=== PATIENT | female | born 1930 | race Caucasian/White ===

== ENCOUNTER 2020-06-29 15:08 | Inpatient (IN) | payer OTHER, BC ==
[2020-06-29] MEDS ORDERED: SODIUM CHLORIDE 1,000 ML IV SCH (15:15)
[2020-06-29 16:21] LABS: BASO % 0.3 % (0-2.0); HEMATOCRIT 39.4 % (32.4-45.2); HEMOGLOBIN 13.5 GM/dL (10.7-15.3); LYMPH % 10.7 % (8-40); MCH 30.5 pg (25.7-33.7); MCHC 34.2 g/dl (32.0-36.0); MEAN CELL VOLUME 89.3 fl (80-96); MEAN PLT VOLUME 7.4 fl (7.5-11.1); MONO % 5.3 % (3.8-10.2); NEUT % 82.7 % (42.8-82.8); PLATELET COUNT 191 K/MM3 (134-434); RBC 4.41 M/mm3 (3.60-5.2); RDW 14.6 % (11.6-15.6); WHITE BLOOD COUNT 7.7 K/mm3 (4.0-10.0)
[2020-06-29 16:24] LABS: INR 0.97 (0.83-1.09)
[2020-06-29 16:27] LABS: ACTIVATED PTT 28.5 SECONDS (25.2-36.5)
[2020-06-29 16:38] LABS: CHLORIDE 102 mmol/L (98-107); SODIUM 138 mmol/L (136-145)
[2020-06-29 16:40] LABS: CALCIUM 9.5 mg/dL (8.5-10.1)
[2020-06-29 16:41] LABS: ALBUMIN 3.8 g/dl (3.4-5.0); ANION GAP 6 MMOL/L (8-16); BLOOD UREA NITROGEN 16.3 mg/dL (7-18); CO2 29 mmol/L (21-32); GLUCOSE,RANDOM 171 mg/dL (74-106); TRIGLYCERIDES 255 mg/dL (0-150)
[2020-06-29 16:42] LABS: CHOLESTEROL 259 mg/dL (50-200); LDL CHOLESTEROL (ONLY SJRH) 153 mg/dL (5-100)
[2020-06-29 16:44] LABS: CREATININE 0.9 mg/dL (0.55-1.3); HDL CHOLESTEROL 64 mg/dL (40-60); SGOT/AST 21 U/L (15-37); SGPT/ALT 18 U/L (13-61)
[2020-06-29 16:45] LABS: BILIRUBIN,TOTAL 0.8 mg/dL (0.2-1)
[2020-06-29 16:47] LABS: ALK PHOS 100 U/L (45-117)
[2020-06-29 16:55] LABS: URINE APPEARANCE CLEAR; URINE BILIRUBIN NEGATIVE (NEGATIVE); URINE COLOR YELLOW; URINE GLUCOSE (UA) NEGATIVE (NEGATIVE); URINE KETONE NEGATIVE (NEGATIVE); URINE LEUK ESTERASE NEGATIVE (NEGATIVE); URINE NITRITE NEGATIVE (NEGATIVE); URINE PROTEIN NEGATIVE (NEGATIVE)
[2020-06-29] MEDS ORDERED: ASPIRIN 300 MG SUPP.RECT PR ONE (17:02)
[2020-06-29] MEDS ORDERED: ASPIRIN SUPPOSITORY 600 MG SUPP.RECT PR ONE (17:03)
[2020-06-29] MEDS ORDERED: ASPIRIN 300 MG SUPP.RECT RC ONE (17:04)
[2020-06-29] MEDS ORDERED: ROSUVASTATIN CA 40 MG TABLET PO ONE (17:52)
[2020-06-29] MEDS: SODIUM CHLORIDE 1,000 ML IV SCH (18:01)
[2020-06-30 07:51] LABS: BASO % 0.2 % (0-2.0); HEMATOCRIT 41.2 % (32.4-45.2); HEMOGLOBIN 14.1 GM/dL (10.7-15.3); MCH 30.4 pg (25.7-33.7); MCHC 34.3 g/dl (32.0-36.0); MEAN CELL VOLUME 88.8 fl (80-96); MONO % 4.1 % (3.8-10.2); NEUT % 90.7 % (42.8-82.8); PLATELET COUNT 177 K/MM3 (134-434); RBC 4.64 M/mm3 (3.60-5.2); RDW 14.6 % (11.6-15.6); WHITE BLOOD COUNT 9.9 K/mm3 (4.0-10.0)
[2020-06-30 08:18] LABS: ALBUMIN 3.5 g/dl (3.4-5.0); BLOOD UREA NITROGEN 12.8 mg/dL (7-18); CALCIUM 9.6 mg/dL (8.5-10.1)
[2020-06-30 08:23] LABS: BILIRUBIN,TOTAL 0.7 mg/dL (0.2-1); TOT PROT 7.6 g/dl (6.4-8.2)
[2020-06-30] MEDS ORDERED: RIVAROXABAN PO SCH (10:00)
[2020-06-30] MEDS: ASPIRIN 325 MG ENTERIC COATED TABLET (FP) PO SCH (12:04)
[2020-06-30] MEDS: amLODIPine BESYLATE 10 MG TABLET (FP) PO SCH (12:04)
[2020-06-30] MEDS: SODIUM CHLORIDE 1,000 ML IV SCH (18:28)
[2020-07-01 01:30] VITALS: BMI 25.3
[2020-07-01] MEDS: ASPIRIN 325 MG ENTERIC COATED TABLET (FP) PO SCH ×2 (11:06→11:20)
[2020-07-01] MEDS: amLODIPine BESYLATE 10 MG TABLET (FP) PO SCH ×2 (11:06→11:20)
[2020-07-01] MEDS ORDERED: PT OWN MED DRAWER 7, Y5N ONE (11:10)
[2020-07-01] MEDS: SODIUM CHLORIDE 1,000 ML IV SCH (19:30)
[2020-07-02] MEDS: amLODIPine BESYLATE 10 MG TABLET (FP) PO SCH (09:06)
[2020-07-02] MEDS: ASPIRIN 325 MG ENTERIC COATED TABLET (FP) PO SCH (10:09)
[2020-07-02] MEDS: RIVAROXABAN 15 MG TABLET PO SCH (10:09)
[2020-07-02] MEDS ORDERED: SODIUM CHLORIDE 1,000 ML IV SCH (14:03)
[2020-07-03] MEDS ORDERED: cefTRIAXone SODIUM 1 GM VIAL ONE (09:49)
[2020-07-03] MEDS ORDERED: DEXTROSE 5%-WATER - 50 ML IVPB ONE (09:50)
[2020-07-03] MEDS: CEFTRIAXONE 1 GM in DEXTROSE 5%-WATER - 50 ML IVPB SCH (10:02)
[2020-07-03] MEDS: RIVAROXABAN 15 MG TABLET PO SCH (10:03)
[2020-07-03] MEDS: amLODIPine BESYLATE 10 MG TABLET (FP) PO SCH (10:04)
[2020-07-03 11:31] LABS: BASO % 0.4 % (0-2.0); EOS % 1.5 % (0-4.5); HEMATOCRIT 41.6 % (32.4-45.2); HEMOGLOBIN 13.9 GM/dL (10.7-15.3); LYMPH % 8.4 % (8-40); MCH 30.1 pg (25.7-33.7); MCHC 33.4 g/dl (32.0-36.0); MEAN CELL VOLUME 90.3 fl (80-96); MEAN PLT VOLUME 7.6 fl (7.5-11.1); MONO % 6.5 % (3.8-10.2); NEUT % 83.2 % (42.8-82.8); PLATELET COUNT 203 K/MM3 (134-434); RBC 4.61 M/mm3 (3.60-5.2); RDW 14.9 % (11.6-15.6); WHITE BLOOD COUNT 11.2 K/mm3 (4.0-10.0)
[2020-07-03 11:49] LABS: CALCIUM 9.5 mg/dL (8.5-10.1)
[2020-07-03 11:50] LABS: ALBUMIN 3.1 g/dl (3.4-5.0); BLOOD UREA NITROGEN 33.2 mg/dL (7-18)
[2020-07-03 11:52] LABS: CREATININE 0.7 mg/dL (0.55-1.3)
[2020-07-03 11:55] LABS: BILIRUBIN,TOTAL 1.4 mg/dL (0.2-1); TOT PROT 7.1 g/dl (6.4-8.2)
[2020-07-03] MEDS ORDERED: SODIUM CHLORIDE 0.45% 1,000 ML IV SCH (14:00)
[2020-07-04 08:15] LABS: BASO % 0.7 % (0-2.0); EOS % 2.3 % (0-4.5); HEMATOCRIT 40.8 % (32.4-45.2); HEMOGLOBIN 13.8 GM/dL (10.7-15.3); LYMPH % 10.3 % (8-40); MCH 30.4 pg (25.7-33.7); MCHC 33.9 g/dl (32.0-36.0); MEAN CELL VOLUME 89.8 fl (80-96); MEAN PLT VOLUME 7.9 fl (7.5-11.1); MONO % 7.5 % (3.8-10.2); NEUT % 79.2 % (42.8-82.8); PLATELET COUNT 225 K/MM3 (134-434); RBC 4.54 M/mm3 (3.60-5.2); RDW 14.6 % (11.6-15.6); WHITE BLOOD COUNT 10.4 K/mm3 (4.0-10.0)
[2020-07-04 09:08] LABS: CALCIUM 9.6 mg/dL (8.5-10.1)
[2020-07-04 09:09] LABS: BLOOD UREA NITROGEN 41.1 mg/dL (7-18)
[2020-07-04 09:12] LABS: CREATININE 0.7 mg/dL (0.55-1.3)
[2020-07-04 09:15] LABS: BILIRUBIN,TOTAL 0.9 mg/dL (0.2-1); TOT PROT 6.9 g/dl (6.4-8.2)
[2020-07-04] MEDS ORDERED: DEXTROSE 5%-WATER - 50 ML IVPB ONE (09:45)
[2020-07-04] MEDS ORDERED: cefTRIAXone SODIUM 1 GM VIAL ONE (09:45)
[2020-07-04] MEDS: CEFTRIAXONE 1 GM in DEXTROSE 5%-WATER - 50 ML IVPB SCH (09:54)
[2020-07-04] MEDS: amLODIPine BESYLATE 10 MG TABLET (FP) PO SCH (09:54)
[2020-07-04] MEDS: RIVAROXABAN 15 MG TABLET PO SCH (09:55)
[2020-07-04] MEDS ORDERED: DEXTROSE 5%-WATER - 1,000 ML IV SCH (12:30)
[2020-07-05 07:23] LABS: BASO % 0.6 % (0-2.0); EOS % 3.8 % (0-4.5); HEMATOCRIT 40.3 % (32.4-45.2); HEMOGLOBIN 13.8 GM/dL (10.7-15.3); LYMPH % 10.8 % (8-40); MCH 30.6 pg (25.7-33.7); MCHC 34.2 g/dl (32.0-36.0); MEAN CELL VOLUME 89.6 fl (80-96); MEAN PLT VOLUME 7.5 fl (7.5-11.1); MONO % 7.6 % (3.8-10.2); NEUT % 77.2 % (42.8-82.8); PLATELET COUNT 216 K/MM3 (134-434); RBC 4.49 M/mm3 (3.60-5.2); RDW 14.3 % (11.6-15.6); WHITE BLOOD COUNT 10.8 K/mm3 (4.0-10.0)
[2020-07-05 07:52] LABS: ALBUMIN 2.8 g/dl (3.4-5.0)
[2020-07-05 07:54] LABS: CALCIUM 9.2 mg/dL (8.5-10.1)
[2020-07-05 07:57] LABS: CREATININE 0.9 mg/dL (0.55-1.3)
[2020-07-05 07:58] LABS: BILIRUBIN,TOTAL 0.9 mg/dL (0.2-1)
[2020-07-05 07:59] LABS: TOT PROT 6.8 g/dl (6.4-8.2)
[2020-07-05] MEDS ORDERED: cefTRIAXone SODIUM 1 GM VIAL ONE (09:04)
[2020-07-05] MEDS ORDERED: DEXTROSE 5%-WATER - 50 ML IVPB ONE (09:04)
[2020-07-05] MEDS: amLODIPine BESYLATE 10 MG TABLET (FP) PO SCH (10:51)
[2020-07-05] MEDS: CEFTRIAXONE 1 GM in DEXTROSE 5%-WATER - 50 ML IVPB SCH (10:51)
[2020-07-05] MEDS: RIVAROXABAN 15 MG TABLET PO SCH (10:51)
[2020-07-05] MEDS: POTASSIUM CHLORIDE 20 MEQ in DEXTROSE 5%-WATER - 1,000 ML IV SCH ×2 (12:43→23:03)
[2020-07-06] MEDS: POTASSIUM CHLORIDE 20 MEQ in DEXTROSE 5%-WATER - 1,000 ML IV SCH ×5 (05:59→20:29)
[2020-07-06 08:28] LABS: BLOOD UREA NITROGEN 39.9 mg/dL (7-18); CALCIUM 9.2 mg/dL (8.5-10.1); MAGNESIUM 2.2 mg/dL (1.8-2.4)
[2020-07-06 08:31] LABS: CREATININE 1.1 mg/dL (0.55-1.3); PHOSPHOROUS 2.8 mg/dL (2.5-4.9)
[2020-07-06] MEDS ORDERED: cefTRIAXone SODIUM 1 GM VIAL ONE (08:40)
[2020-07-06] MEDS ORDERED: DEXTROSE 5%-WATER - 50 ML IVPB ONE (08:41)
[2020-07-06] MEDS: CEFTRIAXONE 1 GM in DEXTROSE 5%-WATER - 50 ML IVPB SCH (09:17)
[2020-07-06] MEDS: RIVAROXABAN 15 MG TABLET PO SCH (13:24)
[2020-07-06] MEDS: amLODIPine BESYLATE 10 MG TABLET (FP) PO SCH (13:25)
[2020-07-06] MEDS ORDERED: PT OWN MED DRAWER 7, Y5N ONE (18:31)
[2020-07-07 05:08] LABS: SARS-CoV-2 NAA Not Detected (Not Detected)
[2020-07-07] MEDS: POTASSIUM CHLORIDE 20 MEQ in DEXTROSE 5%-WATER - 1,000 ML IV SCH ×3 (06:56→23:03)
[2020-07-07 07:43] LABS: BASO % 0.6 % (0-2.0); EOS % 5.4 % (0-4.5); HEMATOCRIT 36.4 % (32.4-45.2); HEMOGLOBIN 12.5 GM/dL (10.7-15.3); LYMPH % 16.4 % (8-40); MCH 30.3 pg (25.7-33.7); MCHC 34.3 g/dl (32.0-36.0); MEAN CELL VOLUME 88.3 fl (80-96); MEAN PLT VOLUME 7.8 fl (7.5-11.1); MONO % 7.2 % (3.8-10.2); NEUT % 70.4 % (42.8-82.8); PLATELET COUNT 211 K/MM3 (134-434); RBC 4.12 M/mm3 (3.60-5.2); RDW 14.3 % (11.6-15.6); WHITE BLOOD COUNT 10.2 K/mm3 (4.0-10.0)
[2020-07-07 07:59] LABS: CALCIUM 8.6 mg/dL (8.5-10.1)
[2020-07-07 08:00] LABS: ALBUMIN 2.5 g/dl (3.4-5.0); BLOOD UREA NITROGEN 44.2 mg/dL (7-18)
[2020-07-07 08:03] LABS: CREATININE 1.8 mg/dL (0.55-1.3)
[2020-07-07 08:05] LABS: TOT PROT 6.2 g/dl (6.4-8.2)
[2020-07-07 08:09] LABS: BILIRUBIN,TOTAL 0.8 mg/dL (0.2-1)
[2020-07-07] MEDS ORDERED: DEXTROSE 5%-WATER - 50 ML IVPB ONE (08:52)
[2020-07-07] MEDS ORDERED: cefTRIAXone SODIUM 1 GM VIAL ONE (08:52)
[2020-07-07] MEDS: RIVAROXABAN 15 MG TABLET PO SCH (09:52)
[2020-07-07] MEDS: CEFTRIAXONE 1 GM in DEXTROSE 5%-WATER - 50 ML IVPB SCH (09:52)
[2020-07-07] MEDS: amLODIPine BESYLATE 10 MG TABLET (FP) PO SCH (09:52)
[2020-07-07 14:46] LABS: EPI CELLS >36 /uL (0-25.1); HYALINE CASTS 10 /uL (0-3.1); URINE APPEARANCE TURBID; URINE BACTERIA 57 /uL (0-1359); URINE BILIRUBIN NEGATIVE (NEGATIVE); URINE COLOR YELLOW; URINE GLUCOSE (UA) NEGATIVE (NEGATIVE); URINE KETONE NEGATIVE (NEGATIVE); URINE LEUK ESTERASE 3+ (NEGATIVE); URINE NITRITE NEGATIVE (NEGATIVE); URINE PROTEIN TRACE (NEGATIVE); URINE UROBILINOGEN 0.2 mg/dL (0.2-1.0); URINE WBC 451 /uL (0-25.8)
[2020-07-07 15:19] LABS: URINE RBC 393.4 /uL (0-23.9); YEAST NO SEEN (NEGATIVE)
[2020-07-08 07:33] LABS: BASO % 0.4 % (0-2.0); EOS % 4.3 % (0-4.5); HEMATOCRIT 38.2 % (32.4-45.2); HEMOGLOBIN 12.6 GM/dL (10.7-15.3); LYMPH % 15.1 % (8-40); MEAN CELL VOLUME 90.9 fl (80-96); MEAN PLT VOLUME 8.5 fl (7.5-11.1); MONO % 7.3 % (3.8-10.2); NEUT % 72.9 % (42.8-82.8); PLATELET COUNT 171 K/MM3 (134-434); RDW 14.8 % (11.6-15.6); WHITE BLOOD COUNT 11.4 K/mm3 (4.0-10.0)
[2020-07-08 07:52] LABS: BLOOD UREA NITROGEN 20.1 mg/dL (7-18); CALCIUM 8.8 mg/dL (8.5-10.1)
[2020-07-08 07:53] LABS: MAGNESIUM 1.8 mg/dL (1.8-2.4)
[2020-07-08 07:56] LABS: CREATININE 0.7 mg/dL (0.55-1.3); PHOSPHOROUS 2.5 mg/dL (2.5-4.9)
[2020-07-08] MEDS ORDERED: cefTRIAXone SODIUM 1 GM VIAL ONE (10:05)
[2020-07-08] MEDS ORDERED: DEXTROSE 5%-WATER - 50 ML IVPB ONE (10:05)
[2020-07-08] MEDS: POTASSIUM CHLORIDE 20 MEQ in DEXTROSE 5%-WATER - 1,000 ML IV SCH ×2 (10:21→18:03)
[2020-07-08] MEDS: amLODIPine BESYLATE 10 MG TABLET (FP) PO SCH (10:21)
[2020-07-08] MEDS: RIVAROXABAN 15 MG TABLET PO SCH (10:21)
[2020-07-08] MEDS: CEFTRIAXONE 1 GM in DEXTROSE 5%-WATER - 50 ML IVPB SCH (10:22)
[2020-07-09] MEDS: POTASSIUM CHLORIDE 20 MEQ in DEXTROSE 5%-WATER - 1,000 ML IV SCH (00:59)
[2020-07-09] MEDS ORDERED: ATORVASTATIN CA 40 MG TABLET (FP) PO ONE (06:45)
[2020-07-09] MEDS ORDERED: POTASSIUM CHLORIDE 20 MEQ in DEXTROSE 5%-WATER - 1,000 ML IV SCH (07:56)
[2020-07-09] MEDS: amLODIPine BESYLATE 10 MG TABLET (FP) PO SCH (10:09)
[2020-07-09] MEDS: RIVAROXABAN 15 MG TABLET PO SCH (10:09)
[2020-07-09 13:15] LABS: BLOOD UREA NITROGEN 11.8 mg/dL (7-18); CALCIUM 8.5 mg/dL (8.5-10.1)
[2020-07-09 13:19] LABS: CREATININE 0.6 mg/dL (0.55-1.3)
[2020-07-09 13:24] LABS: N-TERMINAL BNP 6215.8 pg/ml (5-450)
[2020-07-09] MEDS: D5-1/2NS+20 MEQ KCL - 20 MEQ/1,000 ML INFUS.BAG IV SCH (17:06)
[2020-07-09] MEDS: LATANOPROST 0.005% OPHTH SOLN 2.5ML BOTTLE OU SCH (21:34)
[2020-07-10] MEDS: amLODIPine BESYLATE 10 MG TABLET (FP) PO SCH (10:00)
[2020-07-10] MEDS: RIVAROXABAN 15 MG TABLET PO SCH (10:00)
[2020-07-10] MEDS: D5-1/2NS+20 MEQ KCL - 20 MEQ/1,000 ML INFUS.BAG IV SCH (17:34)
[2020-07-10] MEDS: ATORVASTATIN CA 40 MG TABLET (FP) PO SCH (21:28)
[2020-07-10] MEDS: LATANOPROST 0.005% OPHTH SOLN 2.5ML BOTTLE OU SCH (21:28)
[2020-07-11] MEDS: RIVAROXABAN 15 MG TABLET PO SCH (09:51)
[2020-07-11] MEDS: amLODIPine BESYLATE 10 MG TABLET (FP) PO SCH (09:51)
[2020-07-11] MEDS ORDERED: PT OWN MED DRAWER 7, Y5N ONE (10:19)
[2020-07-11 16:39] LABS: BASO % 0.4 % (0-2.0); HEMATOCRIT 36.1 % (32.4-45.2); HEMOGLOBIN 12.2 GM/dL (10.7-15.3); LYMPH % 15.2 % (8-40); MCH 29.9 pg (25.7-33.7); MCHC 33.7 g/dl (32.0-36.0); MEAN CELL VOLUME 88.7 fl (80-96); MEAN PLT VOLUME 8.1 fl (7.5-11.1); MONO % 5.9 % (3.8-10.2); NEUT % 75.5 % (42.8-82.8); PLATELET COUNT 204 K/MM3 (134-434); RBC 4.07 M/mm3 (3.60-5.2); RDW 14.1 % (11.6-15.6); WHITE BLOOD COUNT 8.4 K/mm3 (4.0-10.0)
[2020-07-11 17:05] LABS: ALBUMIN 2.6 g/dl (3.4-5.0); BLOOD UREA NITROGEN 12.8 mg/dL (7-18)
[2020-07-11 17:09] LABS: CREATININE 0.7 mg/dL (0.55-1.3)
[2020-07-11 17:10] LABS: BILIRUBIN,TOTAL 0.6 mg/dL (0.2-1); TOT PROT 6.2 g/dl (6.4-8.2)
[2020-07-11] MEDS: LATANOPROST 0.005% OPHTH SOLN 2.5ML BOTTLE OU SCH (22:17)
[2020-07-11] MEDS: ATORVASTATIN CA 40 MG TABLET (FP) PO SCH (22:17)
[2020-07-11] MEDS: D5-1/2NS+20 MEQ KCL - 20 MEQ/1,000 ML INFUS.BAG IV SCH (22:18)
[2020-07-12] MEDS: RIVAROXABAN 15 MG TABLET PO SCH (10:03)
[2020-07-12] MEDS: amLODIPine BESYLATE 10 MG TABLET (FP) PO SCH (10:03)
[2020-07-12] MEDS ORDERED: HEPARIN NA (PORCINE) 5,000 UNITS/ML 1ML VIAL IVPUSH PRN ×2 (16:01)
[2020-07-12] MEDS: D5-1/2NS+20 MEQ KCL - 20 MEQ/1,000 ML INFUS.BAG IV SCH ×2 (16:17→20:12)
[2020-07-12] MEDS: LATANOPROST 0.005% OPHTH SOLN 2.5ML BOTTLE OU SCH (22:23)
[2020-07-12] MEDS: ATORVASTATIN CA 40 MG TABLET (FP) PO SCH (22:23)
[2020-07-13 07:38] LABS: BASO % 0.3 % (0-2.0); EOS % 1.6 % (0-4.5); HEMOGLOBIN 12.8 GM/dL (10.7-15.3); LYMPH % 11.5 % (8-40); MCH 30.3 pg (25.7-33.7); MCHC 34.5 g/dl (32.0-36.0); MEAN CELL VOLUME 87.7 fl (80-96); MEAN PLT VOLUME 8.1 fl (7.5-11.1); MONO % 5.6 % (3.8-10.2); PLATELET COUNT 207 K/MM3 (134-434); RBC 4.22 M/mm3 (3.60-5.2); RDW 14.5 % (11.6-15.6); WHITE BLOOD COUNT 10.6 K/mm3 (4.0-10.0)
[2020-07-13 07:49] LABS: CALCIUM 8.9 mg/dL (8.5-10.1)
[2020-07-13 07:50] LABS: BLOOD UREA NITROGEN 8.9 mg/dL (7-18)
[2020-07-13 07:53] LABS: CREATININE 0.5 mg/dL (0.55-1.3)
[2020-07-13] MEDS ORDERED: HEPARIN NA (PORCINE) 5,000 UNITS/ML 1ML VIAL IVPUSH PRN (10:00)
[2020-07-13] MEDS: amLODIPine BESYLATE 10 MG TABLET (FP) PO SCH (10:26)
[2020-07-13] MEDS: HEPARIN SOD,PORK IN 0.45% NACL 25,000 UNIT/500 ML INFUS.BAG IVPB SCH (10:27)
[2020-07-13] MEDS: D5-1/2NS+20 MEQ KCL - 20 MEQ/1,000 ML INFUS.BAG IV SCH ×2 (16:25→20:25)
[2020-07-13] MEDS: HEPARIN NA (PORCINE) 5,000 UNITS/ML 1ML VIAL IVPUSH PRN (20:25)
[2020-07-13] MEDS: ATORVASTATIN CA 40 MG TABLET (FP) PO SCH (23:02)
[2020-07-13] MEDS: LATANOPROST 0.005% OPHTH SOLN 2.5ML BOTTLE OU SCH (23:02)
[2020-07-14 08:10] LABS: BASO % 0.4 % (0-2.0); EOS % 2.5 % (0-4.5); HEMATOCRIT 38.1 % (32.4-45.2); HEMOGLOBIN 13.2 GM/dL (10.7-15.3); LYMPH % 17.3 % (8-40); MCH 30.4 pg (25.7-33.7); MCHC 34.7 g/dl (32.0-36.0); MEAN CELL VOLUME 87.6 fl (80-96); MONO % 6.8 % (3.8-10.2); PLATELET COUNT 227 K/MM3 (134-434); RBC 4.35 M/mm3 (3.60-5.2); RDW 14.4 % (11.6-15.6); WHITE BLOOD COUNT 9.7 K/mm3 (4.0-10.0)
[2020-07-14 08:36] LABS: ALBUMIN 2.8 g/dl (3.4-5.0); BLOOD UREA NITROGEN 8.8 mg/dL (7-18); CALCIUM 9.5 mg/dL (8.5-10.1)
[2020-07-14 08:39] LABS: CREATININE 0.5 mg/dL (0.55-1.3)
[2020-07-14 08:40] LABS: BILIRUBIN,TOTAL 0.7 mg/dL (0.2-1); TOT PROT 6.7 g/dl (6.4-8.2)
[2020-07-14] MEDS: HEPARIN SOD,PORK IN 0.45% NACL 25,000 UNIT/500 ML INFUS.BAG IVPB SCH ×2 (10:27→12:41)
[2020-07-14] MEDS: amLODIPine BESYLATE 10 MG TABLET (FP) PO SCH (10:27)
[2020-07-14] MEDS: D5-1/2NS+20 MEQ KCL - 20 MEQ/1,000 ML INFUS.BAG IV SCH ×2 (16:10→16:55)
[2020-07-14] MEDS: ATORVASTATIN CA 40 MG TABLET (FP) PO SCH (22:15)
[2020-07-14] MEDS: LATANOPROST 0.005% OPHTH SOLN 2.5ML BOTTLE OU SCH (22:15)
[2020-07-15 07:29] LABS: HEMOGLOBIN 12.5 GM/dL (10.7-15.3); MCH 30.2 pg (25.7-33.7); MCHC 34.6 g/dl (32.0-36.0); MEAN CELL VOLUME 87.3 fl (80-96); MEAN PLT VOLUME 8.5 fl (7.5-11.1); PLATELET COUNT 242 K/MM3 (134-434); RBC 4.13 M/mm3 (3.60-5.2); RDW 14.4 % (11.6-15.6); WHITE BLOOD COUNT 9.4 K/mm3 (4.0-10.0)
[2020-07-15] MEDS: HEPARIN SOD,PORK IN 0.45% NACL 25,000 UNIT/500 ML INFUS.BAG IVPB SCH ×4 (08:03→16:52)
[2020-07-15] MEDS: amLODIPine BESYLATE 10 MG TABLET (FP) PO SCH (10:32)
[2020-07-15] MEDS: D5-1/2NS+20 MEQ KCL - 20 MEQ/1,000 ML INFUS.BAG IV SCH (14:57)
[2020-07-15] MEDS: HEPARIN NA (PORCINE) 5,000 UNITS/ML 1ML VIAL IVPUSH PRN (16:49)
[2020-07-15] MEDS: ATORVASTATIN CA 40 MG TABLET (FP) PO SCH (22:38)
[2020-07-15] MEDS: LATANOPROST 0.005% OPHTH SOLN 2.5ML BOTTLE OU SCH (22:39)
[2020-07-16 06:46] LABS: HEMATOCRIT 36.6 % (32.4-45.2); HEMOGLOBIN 12.6 GM/dL (10.7-15.3); MCH 30.1 pg (25.7-33.7); MCHC 34.3 g/dl (32.0-36.0); MEAN CELL VOLUME 87.8 fl (80-96); MEAN PLT VOLUME 7.3 fl (7.5-11.1); PLATELET COUNT 237 K/MM3 (134-434); RBC 4.17 M/mm3 (3.60-5.2); RDW 14.5 % (11.6-15.6); WHITE BLOOD COUNT 8.7 K/mm3 (4.0-10.0)
[2020-07-16] MEDS: amLODIPine BESYLATE 10 MG TABLET (FP) PO SCH (10:21)
[2020-07-16] MEDS: D5-1/2NS+20 MEQ KCL - 20 MEQ/1,000 ML INFUS.BAG IV SCH (15:06)
[2020-07-16] MEDS: RIVAROXABAN 15 MG TABLET PO SCH (17:06)
[2020-07-16] MEDS: ATORVASTATIN CA 40 MG TABLET (FP) PO SCH (22:27)
[2020-07-16] MEDS: LATANOPROST 0.005% OPHTH SOLN 2.5ML BOTTLE OU SCH (22:27)
[2020-07-17 07:52] LABS: HEMATOCRIT 35.4 % (32.4-45.2); HEMOGLOBIN 12.1 GM/dL (10.7-15.3); MCH 30.1 pg (25.7-33.7); MCHC 34.2 g/dl (32.0-36.0); MEAN CELL VOLUME 88.2 fl (80-96); MEAN PLT VOLUME 7.7 fl (7.5-11.1); PLATELET COUNT 238 K/MM3 (134-434); RBC 4.02 M/mm3 (3.60-5.2); WHITE BLOOD COUNT 7.9 K/mm3 (4.0-10.0)
[2020-07-17] MEDS: amLODIPine BESYLATE 10 MG TABLET (FP) PO SCH (10:06)
[2020-07-17] MEDS: D5-1/2NS+20 MEQ KCL - 20 MEQ/1,000 ML INFUS.BAG IV SCH (15:14)
[2020-07-17] MEDS: RIVAROXABAN 15 MG TABLET PO SCH (17:29)
[2020-07-17] MEDS: ATORVASTATIN CA 40 MG TABLET (FP) PO SCH (21:24)
[2020-07-17] MEDS: LATANOPROST 0.005% OPHTH SOLN 2.5ML BOTTLE OU SCH (21:25)
[2020-07-18 07:40] LABS: HEMOGLOBIN 13.3 GM/dL (10.7-15.3); MCH 30.6 pg (25.7-33.7); MCHC 34.9 g/dl (32.0-36.0); MEAN CELL VOLUME 87.6 fl (80-96); MEAN PLT VOLUME 7.8 fl (7.5-11.1); PLATELET COUNT 238 K/MM3 (134-434); RBC 4.34 M/mm3 (3.60-5.2); RDW 14.8 % (11.6-15.6); WHITE BLOOD COUNT 8.1 K/mm3 (4.0-10.0)
[2020-07-18] MEDS: amLODIPine BESYLATE 10 MG TABLET (FP) PO SCH (10:03)
[2020-07-18] MEDS: D5-1/2NS+20 MEQ KCL - 20 MEQ/1,000 ML INFUS.BAG IV SCH (15:00)
[2020-07-18] MEDS: RIVAROXABAN 15 MG TABLET PO SCH (18:00)
[2020-07-18] MEDS: ATORVASTATIN CA 40 MG TABLET (FP) PO SCH (21:50)
[2020-07-18] MEDS: LATANOPROST 0.005% OPHTH SOLN 2.5ML BOTTLE OU SCH (21:50)
[2020-07-19 10:06] VITALS: BP 104/60; PULSE 78; TEMP 97.5
[2020-07-19] MEDS: amLODIPine BESYLATE 10 MG TABLET (FP) PO SCH (10:53)
== END 2020-07-19 13:29 | DRG 64 ==
LOC: JER 15:08 → JERBED 17:53 → J4W 06-30 21:24 → J4S 07-05 22:58
PROVIDERS: ADMIT Internal Medicine; ATTEND Internal Medicine
PROC: 0DH67UZ Insertion of Feeding Device into Stomach, Via Natural or Artificial Opening (ICD-10-PCS; principal; 2020-06-29)
DX: I63.89 Other cerebral infarction (principal); J18.9 Pneumonia, unspecified organism; G81.91 Hemiplegia, unspecified affecting right dominant side; E87.0 Hyperosmolality and hypernatremia; N17.9 Acute kidney failure, unspecified; I50.30 Unspecified diastolic (congestive) heart failure; I69.320 Aphasia following cerebral infarction; R33.9 Retention of urine, unspecified; I11.0 Hypertensive heart disease with heart failure; R29.708 NIHSS score 8; I25.10 Atherosclerotic heart disease of native coronary artery without angina pectoris; E78.5 Hyperlipidemia, unspecified; R73.03 Prediabetes; I48.91 Unspecified atrial fibrillation; R13.10 Dysphagia, unspecified; R62.7 Adult failure to thrive; Z68.25 Body mass index [BMI] 25.0-25.9, adult; Z86.718 Personal history of other venous thrombosis and embolism
CPT/HCPCS: 36415; 70450-TC; 70496-TC; 70498-TC; 70551-TC; 71045-TC-FY; 72125-TC; 80048; 80053; 80061; 81003; 82550; 82553; 82570; 82962; 83036; 83721; 83735; 83880; 83930; 83935; 84100; 84156; 84300; 84443; 84484; 85025; 85027; 85610; 85730; 86850; 86900; 86901; 87205; 93005; 93010; 93225; 93226; 93306-TC; 93880-TC; 97116-GP; 97162-GP; 99285-25; C9803; J1644; Q9967; U0003; U0005

== ENCOUNTER 2020-09-02 14:50 | Inpatient (IN) | payer OTHER, BC ==
[2020-09-02] MEDS ORDERED: LACTATED RINGERS SOLUTION 1000 ML INFUS.BAG IV ONE ×2 (15:58→17:30)
[2020-09-02 16:41] LABS: BASO % 0.5 % (0-2.0); EOS % 1.8 % (0-4.5); HEMATOCRIT 38.6 % (32.4-45.2); LYMPH % 18.9 % (8-40); MCH 29.6 pg (25.7-33.7); MCHC 33.7 g/dl (32.0-36.0); MEAN CELL VOLUME 87.7 fl (80-96); MEAN PLT VOLUME 7.7 fl (7.5-11.1); MONO % 6.6 % (3.8-10.2); NEUT % 72.2 % (42.8-82.8); PLATELET COUNT 184 K/MM3 (134-434); RDW 17.6 % (11.6-15.6); WHITE BLOOD COUNT 7.9 K/mm3 (4.0-10.0)
[2020-09-02 17:00] LABS: CALCIUM 9.8 mg/dL (8.5-10.1)
[2020-09-02 17:01] LABS: BLOOD UREA NITROGEN 33.4 mg/dL (7-18)
[2020-09-02 17:04] LABS: CREATININE 1.3 mg/dL (0.55-1.3)
[2020-09-02 20:02] LABS: EPI CELLS 6 /uL (0-25.1); HYALINE CASTS 13 /uL (0-3.1); URINE APPEARANCE TURBID; URINE BACTERIA 1419 /uL (0-1359); URINE BILIRUBIN 2+ (NEGATIVE); URINE COLOR DK YELLOW; URINE GLUCOSE (UA) NEGATIVE (NEGATIVE); URINE KETONE TRACE (NEGATIVE); URINE LEUK ESTERASE 2+ (NEGATIVE); URINE NITRITE NEGATIVE (NEGATIVE); URINE PROTEIN 2+ (NEGATIVE); URINE WBC 511 /uL (0-25.8)
[2020-09-02] MEDS ORDERED: CEFTRIAXONE 1,000 MG in DEXTROSE 5%-WATER - 50 ML IVPB ONE (20:17)
[2020-09-02] MEDS ORDERED: CEFTRIAXONE 1 GM/50 ML BAG ONE (20:25)
[2020-09-02 21:05] LABS: URINE RBC 54.9 /uL (0-23.9)
[2020-09-03 08:35] LABS: BASO % 0.5 % (0-2.0); EOS % 4.9 % (0-4.5); HEMATOCRIT 34.7 % (32.4-45.2); HEMOGLOBIN 11.5 GM/dL (10.7-15.3); LYMPH % 20.2 % (8-40); MCH 29.4 pg (25.7-33.7); MCHC 33.3 g/dl (32.0-36.0); MEAN CELL VOLUME 88.2 fl (80-96); MEAN PLT VOLUME 7.7 fl (7.5-11.1); MONO % 7.4 % (3.8-10.2); PLATELET COUNT 145 K/MM3 (134-434); RBC 3.93 M/mm3 (3.60-5.2); RDW 17.6 % (11.6-15.6); WHITE BLOOD COUNT 6.6 K/mm3 (4.0-10.0)
[2020-09-03 08:54] LABS: ALBUMIN 2.5 g/dl (3.4-5.0); BLOOD UREA NITROGEN 27.3 mg/dL (7-18)
[2020-09-03 08:58] LABS: CREATININE 0.8 mg/dL (0.55-1.3)
[2020-09-03 08:59] LABS: BILIRUBIN,TOTAL 2.3 mg/dL (0.2-1); TOT PROT 6.2 g/dl (6.4-8.2)
[2020-09-03] MEDS ORDERED: cefTRIAXone SODIUM 1 GM VIAL ONE ×2 (11:40→12:43)
[2020-09-03] MEDS ORDERED: DEXTROSE 5%-WATER - 50 ML IVPB ONE ×2 (11:41→12:43)
[2020-09-03] MEDS: CEFTRIAXONE 1 GM in DEXTROSE 5%-WATER - 50 ML IVPB SCH (13:21)
[2020-09-03] MEDS: amLODIPine BESYLATE 10 MG TABLET (FP) PO SCH (13:30)
[2020-09-03] MEDS: RIVAROXABAN 15 MG TABLET PO SCH (17:32)
[2020-09-03] MEDS ORDERED: RIVAROXABAN 15 MG TABLET PO SCH (18:00)
[2020-09-03] MEDS ORDERED: ATORVASTATIN CA 40 MG TABLET (FP) PO SCH (22:00)
[2020-09-03] MEDS: LATANOPROST 0.005% OPHTH SOLN 2.5ML BOTTLE OU SCH (22:15)
[2020-09-04] MEDS ORDERED: DEXTROSE 5%-WATER - 50 ML IVPB ONE (09:36)
[2020-09-04] MEDS ORDERED: cefTRIAXone SODIUM 1 GM VIAL ONE (09:36)
[2020-09-04] MEDS: amLODIPine BESYLATE 10 MG TABLET (FP) PO SCH (09:37)
[2020-09-04] MEDS: CEFTRIAXONE 1 GM in DEXTROSE 5%-WATER - 50 ML IVPB SCH (09:37)
[2020-09-04] MEDS: RIVAROXABAN 15 MG TABLET PO SCH (17:12)
[2020-09-04] MEDS: LATANOPROST 0.005% OPHTH SOLN 2.5ML BOTTLE OU SCH (21:14)
[2020-09-05] MEDS ORDERED: cefTRIAXone SODIUM 1 GM VIAL ONE (09:50)
[2020-09-05] MEDS ORDERED: DEXTROSE 5%-WATER - 50 ML IVPB ONE (09:51)
[2020-09-05] MEDS: CEFTRIAXONE 1 GM in DEXTROSE 5%-WATER - 50 ML IVPB SCH (09:52)
[2020-09-05] MEDS: amLODIPine BESYLATE 10 MG TABLET (FP) PO SCH (09:52)
[2020-09-05 10:35] LABS: BASO % 0.6 % (0-2.0); EOS % 4.4 % (0-4.5); HEMATOCRIT 37.7 % (32.4-45.2); HEMOGLOBIN 12.1 GM/dL (10.7-15.3); LYMPH % 22.6 % (8-40); MCH 28.9 pg (25.7-33.7); MCHC 32.2 g/dl (32.0-36.0); MEAN CELL VOLUME 89.7 fl (80-96); MEAN PLT VOLUME 7.6 fl (7.5-11.1); MONO % 7.5 % (3.8-10.2); NEUT % 64.9 % (42.8-82.8); PLATELET COUNT 183 K/MM3 (134-434); RDW 18.1 % (11.6-15.6); WHITE BLOOD COUNT 6.3 K/mm3 (4.0-10.0)
[2020-09-05 10:36] LABS: CALCIUM 9.1 mg/dL (8.5-10.1)
[2020-09-05 10:37] LABS: ALBUMIN 2.5 g/dl (3.4-5.0); BLOOD UREA NITROGEN 12.8 mg/dL (7-18)
[2020-09-05 10:40] LABS: CREATININE 0.5 mg/dL (0.55-1.3)
[2020-09-05 10:42] LABS: BILIRUBIN,TOTAL 1.7 mg/dL (0.2-1); TOT PROT 6.1 g/dl (6.4-8.2)
[2020-09-05] MEDS: RIVAROXABAN 15 MG TABLET PO SCH (17:41)
[2020-09-05] MEDS: LATANOPROST 0.005% OPHTH SOLN 2.5ML BOTTLE OU SCH (21:57)
[2020-09-06 09:09] LABS: ALBUMIN 2.5 g/dl (3.4-5.0); BLOOD UREA NITROGEN 15.7 mg/dL (7-18)
[2020-09-06 09:10] LABS: CALCIUM 8.9 mg/dL (8.5-10.1)
[2020-09-06 09:14] LABS: CREATININE 0.5 mg/dL (0.55-1.3)
[2020-09-06 09:15] LABS: BASO % 0.6 % (0-2.0); BILIRUBIN,TOTAL 1.5 mg/dL (0.2-1); EOS % 4.8 % (0-4.5); HEMOGLOBIN 11.5 GM/dL (10.7-15.3); LYMPH % 30.8 % (8-40); MCH 29.4 pg (25.7-33.7); MCHC 33.8 g/dl (32.0-36.0); MEAN PLT VOLUME 7.4 fl (7.5-11.1); MONO % 7.2 % (3.8-10.2); NEUT % 56.6 % (42.8-82.8); PLATELET COUNT 194 K/MM3 (134-434); RBC 3.91 M/mm3 (3.60-5.2); RDW 17.6 % (11.6-15.6); WHITE BLOOD COUNT 5.8 K/mm3 (4.0-10.0)
[2020-09-06] MEDS ORDERED: DEXTROSE 5%-WATER - 50 ML IVPB ONE (09:54)
[2020-09-06] MEDS ORDERED: cefTRIAXone SODIUM 1 GM VIAL ONE (09:54)
[2020-09-06] MEDS: CEFTRIAXONE 1 GM in DEXTROSE 5%-WATER - 50 ML IVPB SCH (10:03)
[2020-09-06] MEDS: RIVAROXABAN 15 MG TABLET PO SCH (17:13)
[2020-09-06] MEDS: LATANOPROST 0.005% OPHTH SOLN 2.5ML BOTTLE OU SCH (22:25)
[2020-09-06] MEDS ORDERED: SODIUM CHLORIDE 1,000 ML IV SCH (23:45)
[2020-09-07] MEDS ORDERED: SODIUM CHLORIDE 1,000 ML IV SCH (00:15)
[2020-09-07] MEDS ORDERED: ALPRAZolam 0.25 MG TABLET PO PRN (00:33)
[2020-09-07 10:01] LABS: ALBUMIN 2.3 g/dl (3.4-5.0); BLOOD UREA NITROGEN 10.7 mg/dL (7-18); CALCIUM 8.6 mg/dL (8.5-10.1)
[2020-09-07 10:03] LABS: BILIRUBIN,TOTAL 1.3 mg/dL (0.2-1); CREATININE 0.4 mg/dL (0.55-1.3)
[2020-09-07 10:05] LABS: TOT PROT 5.8 g/dl (6.4-8.2)
[2020-09-07] MEDS ORDERED: cefTRIAXone SODIUM 1 GM VIAL ONE (10:34)
[2020-09-07] MEDS ORDERED: DEXTROSE 5%-WATER - 50 ML IVPB ONE (10:34)
[2020-09-07] MEDS: CEFTRIAXONE 1 GM in DEXTROSE 5%-WATER - 50 ML IVPB SCH (11:11)
[2020-09-07] MEDS: RIVAROXABAN 15 MG TABLET PO SCH (18:37)
[2020-09-07] MEDS: LATANOPROST 0.005% OPHTH SOLN 2.5ML BOTTLE OU SCH (21:34)
[2020-09-08] MEDS ORDERED: cefTRIAXone SODIUM 1 GM VIAL ONE (10:37)
[2020-09-08] MEDS ORDERED: DEXTROSE 5%-WATER - 50 ML IVPB ONE (10:37)
[2020-09-08] MEDS: CEFTRIAXONE 1 GM in DEXTROSE 5%-WATER - 50 ML IVPB SCH (10:39)
[2020-09-08] MEDS: RIVAROXABAN 15 MG TABLET PO SCH (17:04)
[2020-09-08] MEDS: LATANOPROST 0.005% OPHTH SOLN 2.5ML BOTTLE OU SCH (21:03)
[2020-09-09] MEDS ORDERED: DEXTROSE 5%-WATER - 50 ML IVPB ONE (09:35)
[2020-09-09] MEDS ORDERED: cefTRIAXone SODIUM 1 GM VIAL ONE (09:35)
[2020-09-09 10:09] LABS: HEP B CORE AB, TOT Negative (Negative)
[2020-09-09 11:30] LABS: ALBUMIN 2.4 g/dl (3.4-5.0)
[2020-09-09 11:33] LABS: BILIRUBIN,DIRECT 0.7 mg/dL (0.0-0.2)
[2020-09-09 11:35] LABS: BILIRUBIN,TOTAL 1.2 mg/dL (0.2-1); TOT PROT 5.9 g/dl (6.4-8.2)
[2020-09-09] MEDS: TAMSULOSIN HCL 0.4 MG CAP PO SCH (16:40)
[2020-09-09] MEDS: RIVAROXABAN 15 MG TABLET PO SCH (18:41)
[2020-09-09 19:08] LABS: TRANSGLUTAMINASE IGA < 2 U/mL (0-3); TRANSGLUTAMINASE IGG < 2 U/mL (0-5)
[2020-09-09] MEDS: LATANOPROST 0.005% OPHTH SOLN 2.5ML BOTTLE OU SCH (21:40)
[2020-09-10] MEDS: TAMSULOSIN HCL 0.4 MG CAP PO SCH (09:20)
[2020-09-10 12:38] VITALS: BMI 21.3
[2020-09-10] MEDS: RIVAROXABAN 15 MG TABLET PO SCH (18:49)
[2020-09-10] MEDS: LATANOPROST 0.005% OPHTH SOLN 2.5ML BOTTLE OU SCH (21:09)
[2020-09-11] MEDS ORDERED: SODIUM CHLORIDE 1,000 ML IV ONE (01:00)
[2020-09-11] MEDS: TAMSULOSIN HCL 0.4 MG CAP PO SCH (12:27)
[2020-09-11] MEDS: RIVAROXABAN 15 MG TABLET PO SCH (17:58)
[2020-09-11 19:43] VITALS: BP 104/59; PULSE 74; TEMP 97.6
== END 2020-09-11 19:44 | disposition home health service (06) | DRG 699 ==
LOC: JER 14:50 → JERBED 20:18 → J5S 09-03 00:18
PROVIDERS: ADMIT Internal Medicine; ATTEND Internal Medicine
DX: T83.511A Infection and inflammatory reaction due to indwelling urethral catheter, initial encounter (principal); I69.351 Hemiplegia and hemiparesis following cerebral infarction affecting right dominant side; I25.10 Atherosclerotic heart disease of native coronary artery without angina pectoris; N39.0 Urinary tract infection, site not specified; B95.4 Other streptococcus as the cause of diseases classified elsewhere; B95.2 Enterococcus as the cause of diseases classified elsewhere; E86.0 Dehydration; I10 Essential (primary) hypertension; K71.6 Toxic liver disease with hepatitis, not elsewhere classified; T46.6X5A Adverse effect of antihyperlipidemic and antiarteriosclerotic drugs, initial encounter; I48.91 Unspecified atrial fibrillation; K86.9 Disease of pancreas, unspecified; R94.5 Abnormal results of liver function studies; E11.9 Type 2 diabetes mellitus without complications; E78.5 Hyperlipidemia, unspecified; Z86.718 Personal history of other venous thrombosis and embolism; Z90.49 Acquired absence of other specified parts of digestive tract; Y83.8 Other surgical procedures as the cause of abnormal reaction of the patient, or of later complication, without mention of misadventure at the time of the procedure
CPT/HCPCS: 36415; 71045-TC-FY; 74181-TC; 74230-TC-FY; 76705-TC; 80048; 80053; 80076; 81003; 82728; 82962; 82977; 83516; 83540; 83550; 85025; 86038; 86704; 86706; 86707; 86708; 86709; 86803; 87086; 87186; 87340; 92611-GN; 93005; 93010; 97116-GP; 97161-GP; 99285-25; C9803; U0003; U0005

== ENCOUNTER 2020-11-10 15:20 | Emergency (ER) | payer OTHER, BC ==
[2020-11-10 16:10] VITALS: BMI 23.0
[2020-11-10] MEDS ORDERED: SODIUM CHLORIDE 0.9% 500 ML INFUS.BAG IV ONE (16:56)
[2020-11-10 18:42] LABS: BASO % 0.7 % (0-2.0); EOS % 1.9 % (0-4.5); HEMATOCRIT 33.7 % (32.4-45.2); HEMOGLOBIN 11.2 GM/dL (10.7-15.3); LYMPH % 25.8 % (8-40); MCH 29.9 pg (25.7-33.7); MCHC 33.2 g/dl (32.0-36.0); MEAN CELL VOLUME 90.1 fl (80-96); MEAN PLT VOLUME 7.3 fl (7.5-11.1); MONO % 8.3 % (3.8-10.2); NEUT % 63.3 % (42.8-82.8); PLATELET COUNT 167 10^3/uL (134-434); RBC 3.74 M/mm3 (3.60-5.2); RDW 15.6 % (11.6-15.6); WHITE BLOOD COUNT 5.3 K/mm3 (4.0-10.0)
[2020-11-10 19:03] LABS: CALCIUM 8.9 mg/dL (8.5-10.1)
[2020-11-10 19:04] LABS: ALBUMIN 2.5 g/dl (3.4-5.0); BLOOD UREA NITROGEN 20.1 mg/dL (7-18)
[2020-11-10 19:07] LABS: CREATININE 0.7 mg/dL (0.55-1.3)
[2020-11-10 19:08] LABS: BILIRUBIN,TOTAL 0.7 mg/dL (0.2-1); TOT PROT 6.2 g/dl (6.4-8.2)
[2020-11-11 05:34] VITALS: BP 144/80; PULSE 96; TEMP 97.7
== END 2020-11-11 05:36 | disposition home or self-care (01) ==
LOC: JER 15:20
DX: R19.7 Diarrhea, unspecified (principal); E86.0 Dehydration
CPT/HCPCS: 36415; 71045-TC-FY; 80053; 85025; 93005; 93010; 99285-25; C9803; U0003; U0005